=== PATIENT | female | born 1940 | race Caucasian/White ===

== ENCOUNTER 2016-10-25 06:35 | Inpatient (IN) | payer OTHER ==
[2016-10-25 06:40] VITALS: BP 152/64
[2016-10-25 10:40] VITALS: BP 166/54
[2016-10-25 14:25] VITALS: BP 128/61
[2016-10-25 19:00] VITALS: BP 127/61
--- NOTE | 2016-10-25 19:09 | HISTORY AND PHYSICAL ---
ADMITTED: 10/25/2016 CHIEF COMPLAINT: 1. Shortness of breath 2. Productive cough. HISTORY OF PRESENT ILLNESS: This is a 76-year-old female with a history COPD, presenting to the hospital with complaints of shortness of breath and productive cough x1 week. The patient states that approximately a week ago, she started having a productive cough and shortness of breath. She states that she was having intermittent fevers over the last week, which have since improved; however, she has continued to have a productive cough and worsening shortness of breath. She went to her primary care provider 2 days ago and was started on prednisone and Bactrim for COPD exacerbation and possible UTI; however, she took 1 dose of the Bactrim and felt like she was having some worsening shortness of breath and, therefore, stopped taking the antibiotic. She was also having dysuria at that time. MEDICAL/SURGICAL HISTORY: Past medical history: 1. Type 2 diabetes. 2. G4, P4, . 3. Smoker. 4. Peptic ulcer. 5. Sleep disorder. 6. Low back pain. 7. COPD. 8. Cystocele. 9. Hypothyroidism. 10. Constipation. 11. Hiatal hernia. 12. DVT with . Past surgical history: 1. She has had hemorrhoidectomy. 2. Low back and neck surgery. 3. Rib excision. 4. Hysterectomy. 5. Neck excision. 6. Breast mass excision. 7. Appendectomy. 8. Plastic surgery on her face. 9. Colonoscopy in 2016 showed 1 polyp. MEDICATIONS: 1. Advair 500 mcg/50 mcg 1 puff inhaled b.i.d. 2. Albuterol nebulizer 2.5 mg inhaled q.4 hours p.r.n. 3. Atorvastatin 10 mg p.o. daily. 4. Dexilant 30 mg p.o. daily. 5. Diphenhydramine 50 mg p.o. once [address] scans. 6. Flonase 50 mcg 1 spray each nostril b.i.d. 7. Glimepiride 4 mg p.o. daily. 8. DuoNeb inhaled q.i.d. 9. Levemir 20 units subcutaneous daily. 10. Lisinopril 5 mg p.o. daily. 11. Metformin 1000 mg p.o. b.i.d. 12. Montelukast 10 mg p.o. daily. 13. Prednisone unknown dose 14. Albuterol inhaler. 15. Senna 8.6 mg 2 tablets p.o. at bedtime. 16. Bactrim double strength 1 tablet p.o. b.i.d. 17. Synthroid 150 mcg p.o. daily. 18. Tramadol 50 mg p.o. b.i.d. p.r.n. pain. 19. Tums 300 mg p.o. q.2 hours p.r.n. heartburn. ALLERGIES: 1. LATEX. 2. MINOCYCLINE. 3. DOXYCYCLINE. 4. Z-DONTE. 5. CECLOR. 6. NITROFURANTOIN. 7. OXYCODONE. 8. QUININE. 9. THEOPHYLLINE. 10. DYE. 11. PENICILLIN. SOCIAL HISTORY: The patient quit smoking last Thursday after she had cut back over the last year or two. She had been smoking a half a pack a day since the age of 12 or younger. She denies any alcohol or drug use. FAMILY HISTORY: Mother with hypertension and CHF. Sister with diabetes. Brother with COPD. REVIEW OF SYSTEMS: A full 12-point review of systems was done and was negative except as per HPI and the fact that the patient also admits to tarry stools. She also has ongoing constipation, despite her medications for her constipation. PHYSICAL EXAMINATION: VITAL SIGNS: Blood pressure is 152/64, pulse is 89, respiratory rate of 24, O2 saturation 94% on 2 liters, T-max is 36.4 degrees Celsius. GENERAL: This is an elderly female lying in bed in no apparent distress. HEENT: Head is atraumatic, normocephalic. Pupils are equal, round, and reactive to light with accommodation bilaterally. Extraocular muscles are intact bilaterally. Oropharynx is nonerythematous without exudates, but dry. NECK: Trachea is midline. There is no JVD. HEART: S1, S2, regular rate and rhythm. No S3, S4, gallops, or rubs. There is a 2/6 systolic murmur increased at the base. LUNGS: The patient has expiratory wheezing diffusely, but with good air movement. ABDOMEN: Soft, nontender, nondistended without hepatosplenomegaly or masses. Bowel sounds are active. EXTREMITIES: There is trace bilateral lower extremity edema. LAB/IMAGING: Labs: BNP of 20. No other labs are available; however, by report, the patient is positive for influenza. X-rays are unavailable. EKG shows normal sinus rhythm at 89 beats per minute with left atrial enlargement; QTc of 620, which is prolonged; and random flipped T waves. IMPRESSION: This is a 76-year-old female with a history of chronic obstructive pulmonary disease presenting with a chronic obstructive pulmonary disease exacerbation with influenza. PLAN: 1. Fluids, electrolytes, nutrition: The patient will be on a consistent carbohydrate diet. 2. Cardiac: Prolonged QTc. We will evaluate all possible medications that could be contributing to this and hold. Monitor closely. 3. Respiratory: Chronic obstructive pulmonary disease exacerbation. The patient will be continued on prednisone and nebulizer treatments. 4. Endocrine: The patient is a type 2 diabetic. We will restart home insulin at half the home insulin dose and insulin sliding scale. Hypothyroidism: We will add to labs if it has not already been done. 5. Gastrointestinal: The patient states she had a recent peptic ulcer disease and is on Dexilant. Will continue her on pantoprazole while an inpatient. The patient has chronic constipation that is not well controlled. We will add Colace to senna, which she is already currently taking 6. Prophylaxis: The patient will be on sequential compression devices. Given the recent peptic ulcer disease, if she remains stable and is still in the hospital for 24 hours, we will likely change her to chemical deep venous thrombosis prophylaxis. 7. Code status: FULL CODE.
[2016-10-25 23:16] VITALS: BP 122/56
[2016-10-26 02:49] VITALS: BP 115/49
[2016-10-26 06:59] VITALS: BP 108/50
[2016-10-26] MEDS ORDERED: ADVAIR DISKU INH (07:50)
[2016-10-26] MEDS ORDERED: ATORVASTATIN CA10 MG PO (07:51)
[2016-10-26] MEDS ORDERED: ALBUTEROL2.5 MG/3 M IN (07:51)
[2016-10-26] MEDS ORDERED: DEXILANT30 MG PO (07:52)
[2016-10-26] MEDS ORDERED: FLONASE AL50 MCG/ACT (07:53)
[2016-10-26] MEDS ORDERED: AMARYL4 MG PO (07:53)
[2016-10-26] MEDS ORDERED: LEVEMIR FL100 UNIT/M SC (07:54)
[2016-10-26] MEDS ORDERED: METFORMIN HCL500 MG PO (07:55)
[2016-10-26] MEDS ORDERED: PRINIVIL5 MG PO (07:55)
[2016-10-26] MEDS ORDERED: MONTELUKAST SOD10 MG PO (07:56)
[2016-10-26] MEDS ORDERED: PROAIR HFA IN (07:57)
[2016-10-26] MEDS ORDERED: PREDNISONE20 MG PO (07:57)
[2016-10-26] MEDS ORDERED: SENNA-LAX8.6 MG PO (07:58)
[2016-10-26] MEDS ORDERED: SYNTHROID100 MCG PO (07:59)
[2016-10-26] MEDS ORDERED: BACTRIM1 TAB PO (07:59)
[2016-10-26] MEDS ORDERED: ULTRAM EQIVALEN50 MG PO (08:00)
[2016-10-26] MEDS ORDERED: TUMS500 MG PO (08:02)
[2016-10-26 10:30] VITALS: BP 120/50
--- NOTE | 2016-10-26 13:21 | Progress Note ---
Subjective General Patient feels improved today. SOB and cough are improved. No nausea/vomitting/ diarrhea. + constipation. No abd pain. No chest pain. Physical Exam Vital Signs / I&Os Vital Signs Date Time Temp Pulse Resp B/P Pulse O2 O2 Flow FiO2 Ox Delivery Rate 10/26 1143 94 Nasal 1.0 Cannula 10/26 1030 36.6 69 18 120/50 94 Nasal 2.0 Cannula 10/26 0934 2.0 10/26 0800 2.0 10/26 0659 36.4 65 21 108/50 94 Nasal 2.0 Cannula 10/26 0249 36.7 75 24 115/49 95 Nasal 2.0 Cannula 10/26 0235 2.0 10/25 2343 Nasal 2.0 Cannula 10/25 2316 36.7 79 20 122/56 94 Nasal 2.0 Cannula 10/25 1907 2.0 10/25 1900 36.6 72 24 127/61 94 Nasal 2.0 Cannula 10/25 1630 Nasal 2.0 Cannula 10/25 1425 36.4 94 24 128/61 90 Nasal 2.0 Cannula I&O 10/26 0000 10/25 1600 10/25 0800 Intake Total 240 600 Output Total 1200 850 175 Balance -960 -250 -175 General Appearance Alert, Cooperative, No acute distress Lungs Course diffusely with expiratory wheezing. Cardiovascular Regular rate and rhythm, Normal S1 and S2, 2/6 systolic murmur increased at the base. Abdomen Normal bowel sounds, Soft, No tenderness Extremities Trace to 1+ bilateral LE edema. Assessment and Plan Problem List 1. Influenza Plan On tamiflu. 2. COPD (chronic obstructive pulmonary disease) Plan Improving on steroids and nebs. Working on weaning O2. Will consider d/c tomorrow if off O2.
[2016-10-26 14:54] VITALS: BP 127/90
[2016-10-26 18:13] VITALS: BP 144/73
[2016-10-26 22:30] VITALS: BP 95/67
[2016-10-27 02:10] VITALS: BP 145/55
[2016-10-27 06:19] VITALS: BP 113/57
--- NOTE | 2016-10-27 07:35 | Progress Note ---
Medications and Allergies Allergies Coded Allergies: Aspirin (From Percodan) (Severe, DIFFICULTY BREATING 10/25/16) Azithromycin (Severe, 10/25/16) Cefaclor (Severe, HIVES 10/25/16) Iodinated Diagnostic Agents (Severe, IV AND ORAL 10/25/16) Latex (Severe, BLISTERS 10/25/16) Minocycline (From Minocin) (Severe, RASH, FACIAL SWELLING - SKIN CLEANSER 10/25) Morphine (Severe, HIVES 10/25/16) Oxycodone (From Percodan) (Severe, DIFFICULTY BREATING 10/25/16) Penicillins (Severe, RASH 10/25/16) Quinine (Severe, HIVES 10/25/16) Nitrofurantoin (Intermediate, SOB, RASH 10/25/16) Uncoded Allergies: TEREPHTHALATE (Severe, 10/25/16) Physical Exam LAB Results Laboratory Tests 10/27 0500 Chemistry Plasma Sodium (136 - 145 mmol/L) 141 Plasma Potassium (3.5 - 5.1 mmol/L) 3.7 Plasma Chloride (98 - 107 mmol/L) 103 CO2 (Enzymatic) (21 - 32 mmol/L) 28 BUN (7 - 18 mg/dL) 21 Creatinine (0.6 - 1.3 mg/dL) 1.0 Est GFR ( Amer) (mL/min) >60 Est GFR (Non-Af Amer) (mL/min) 57.14 Glucose (70 - 110 mg/dL) 150 Plasma Calcium (8.5 - 10.1 mg/dL) 8.6 Hematology WBC (4.5 - 11.5 K/uL) 9.7 RBC (4.00 - 5.20 M/uL) 4.22 Hgb (12.0 - 16.0 gm/dL) 12.7 Hct (36.0 - 46.0 %) 38.1 MCV (80 - 100 fL) 90 MCH (26 - 34 pg) 30 RDW (11.6 - 14.8 %) 12.7 Neut % (Auto) (50 - 75 %) 62.7 Lymph % (Auto) (25 - 40 %) 29.9 [place] % (Auto) (3 - 14 %) 5.9 Eos % (Auto) (0 - 4 %) 0.5 Baso % (Auto) (0 - 2 %) 1.0 Plt Count, EDTA (150 - 400 K/uL) 236 PUBS MCHC (31 - 37 g/dL) 33 PO 0811 Metformin HCl 1,000 MG BID 10/25 09 AC 10/26 PO 211 Oseltamivir Phosphate 75 MG BID 10/25 09 AC 10/26 PO 10/29 2200 211 Tiotropium [place] See Dose DAILY 10/25 09 AC 10/27 Insts (3) IN 07 Fluticasone/ See Dose RTBID 10/25 08 AC 10/27 Salmeterol Insts (4) IN 732 Acetaminophen/ 1 TAB Q4H PRN 10/25 07 AC 10/27 Hydrocodone Bitart PO 0035 Acetaminophen 650 MG Q6H PRN 10/25 0645 AC PO Albuterol Sulfate 2.5 MG RTQ2H PRN 10/25 0645 AC 10/25 IN 0834 Dose Instructions: (1)Insulin Human Lispro: LOW DOSE: ACCUCHECK AND SLIDING SCALE >>To change sliding scale DISCONTINUE this order and enter a NEW order. Thanks< (2)Calcium Carbonate: 500 - 1000 MG (1 - 2 TABLETS) (3)Tiotropium [place]: 1 CAPSULE VIA HANDIHALER (4)Fluticasone/Salmeterol: 1 CLICK Allergies Coded Allergies: Aspirin (From Percodan) (Severe, DIFFICULTY BREATING 10/25/16) Azithromycin (Severe, 10/25/16) Cefaclor (Severe, HIVES 10/25/16) Iodinated Diagnostic Agents (Severe, IV AND ORAL 10/25/16) Latex (Severe, BLISTERS 10/25/16) Minocycline (From Minocin) (Severe, RASH, FACIAL SWELLING - SKIN CLEANSER 10/25) Morphine (Severe, HIVES 10/25/16) Oxycodone (From Percodan) (Severe, DIFFICULTY BREATING 10/25/16) Penicillins (Severe, RASH 10/25/16) Quinine (Severe, HIVES 10/25/16) Nitrofurantoin (Intermediate, SOB, RASH 10/25/16) Uncoded Allergies: TEREPHTHALATE (Severe, 10/25/16) Physical Exam Vital Signs / I&Os Vital Signs Date Time Temp Pulse Resp B/P Pulse O2 O2 Flow FiO2 Ox Delivery Rate 10/27 0619 98.1 71 18 113/57 93 Nasal 1.0 Cannula 10/27 0210 97.9 79 22 145/55 92 Nasal 1.0 Cannula 10/27 0125 1.0 10/27 0045 Nasal 1.0 Cannula 10/26 2230 98.1 78 18 95/67 94 Nasal 1.0 Cannula 10/26 1925 1.0 10/26 1813 97.9 72 18 144/73 95 Nasal 1.0 Cannula 10/26 1630 Nasal 1.0 Cannula 10/26 1536 1.0 10/26 1454 97.9 66 18 127/90 94 Nasal 1.0 Cannula 10/26 1143 94 Nasal 1.0 Cannula 10/26 1030 97.9 69 18 120/50 94 Nasal 2.0 Cannula 10/26 0934 2.0 10/26 0800 2.0 I&O 10/27 0000 10/26 1600 10/26 0800 Intake Total 940 1660 980 Output Total 675 800 525 Balance 265 860 455 LAB Results Laboratory Tests 10/27 0500 Chemistry Plasma Sodium (136 - 145 mmol/L) 141 Plasma Potassium (3.5 - 5.1 mmol/L) 3.7 Plasma Chloride (98 - 107 mmol/L) 103 CO2 (Enzymatic) (21 - 32 mmol/L) 28 BUN (7 - 18 mg/dL) 21 Creatinine (0.6 - 1.3 mg/dL) 1.0 Est GFR ( Amer) (mL/min) >60 Est GFR (Non-Af Amer) (mL/min) 57.14 Glucose (70 - 110 mg/dL) 150 Plasma Calcium (8.5 - 10.1 mg/dL) 8.6 Hematology WBC (4.5 - 11.5 K/uL) 9.7 RBC (4.00 - 5.20 M/uL) 4.22 Hgb (12.0 - 16.0 gm/dL) 12.7 Hct (36.0 - 46.0 %) 38.1 MCV (80 - 100 fL) 90 MCH (26 - 34 pg) 30 RDW (11.6 - 14.8 %) 12.7 Neut % (Auto) (50 - 75 %) 62.7 Lymph % (Auto) (25 - 40 %) 29.9 [place] % (Auto) (3 - 14 %) 5.9 Eos % (Auto) (0 - 4 %) 0.5 Baso % (Auto) (0 - 2 %) 1.0 Plt Count, EDTA (150 - 400 K/uL) 236 PUBS MCHC (31 - 37 g/dL) 33 Assessment and Plan Problem List 1. COPD (chronic obstructive pulmonary disease) 2. Influenza Plan Current status: [current status] Anticipated discharge date: [discharge date] Anticipated discharge placement: [Home] Patient care time: Time spent in chart review, patient interview, physical exam, CPOE, and care documentation: [ ] minutes Visit to patient today: [ ] Complexity of care: [ ] E&M Codes Rounding: Inpt-Moderate/[id number]
[2016-10-27 10:45] VITALS: BP 117/53
[2016-10-27 14:20] VITALS: BP 130/49
[2016-10-27] MEDS ORDERED: SPIRIVA18 MCG IN (15:25)
--- NOTE | 2016-10-27 15:27 | Provider's Discharge Care Plan ---
Problem, Goal, Plan Problem List 1. COPD (chronic obstructive pulmonary disease) Goals: Improve disease control, Prevent disease progress Instructions: Follow up as directed, Take meds as directed
--- NOTE | 2016-10-27 15:32 | Discharge Summary ---
Discharge Summary Report Admit Date 10/25/16 Discharge Date 10/27/16 Admission Diagnosis 1. Exacerbation of COPD 2. Diabetes Mellitus Discharge Diagnosis 1. Exacerbation of COPD 2. Diabetes Mellitus 3. Nicotine dependence-smoking Brief History The patient is a 76-year-old white female with a significant past medical history of COPD, type 2 diabetes mellitus, peptic ulcer disease, nicotine dependence smoking who presented to [facility] emergency department secondary to complaints of shortness of breath. [facility] ER evaluation was consistent with exacerbation of COPD. Secondary to the above, the patient was admitted by Marilyn Penn M.D. for further evaluation and treatment For other history present illness, past medical history, family history, social history, review of systems, and admission physical examination please see the patient's history and physical examination and ER visit note in the patient's medical record. Hospital Course The following problems and their management were noted during the patient's hospitalization: 1. Exacerbation of COPD The patient presented with history of exacerbation of COPD. He responded well to inhalation bronchodilators and corticosteroids therapy. On the day of discharge patient required no supplemental oxygen. She was up ambulating without problems. She was discharged on combination therapy of Spiriva one inhalation daily, Advair discus 500/50 one inhalation twice a day, albuterol nebs 2.5 mg every 6 hours when necessary shortness of breath, and prednisone 60 mg by mouth daily. She will follow-up with her PCP as previously scheduled. She is encouraged to follow a smoking abstinence program post discharge. No findings of influenza during the patient's hospitalization. Tamiflu none issued on discharge 2. Diabetes Mellitus The patient has a long-standing history of diabetes mellitus. Blood sugar was out of control but elevated on corticosteroids. The patient was discharged on metformin 1000 mg by mouth twice a day and glimepiride 4 mg by mouth daily, and Levemir insulin 20 units subcutaneous twice a day. She'll monitor blood sugars with follow-up with her PCP as scheduled. 3. Nicotine dependence-smoking The patient has a history of nicotine dependence-smoking. Encouraged patient to pursue a smoking absence program post discharge. Recommended NicoDerm patch when necessary as needed. Patient aware of the health risk of ongoing smoking. General Appearance Alert, Oriented X3, Cooperative, No acute distress HEENT Atraumatic, PERRLA, EOMI, Mucous membran moist/pink Lungs Scattered rhonchi, no significant wheezes. Exam much improved. Cardiovascular Regular Rate, Normal S1, Normal S2, No murmurs, Gallops, Rubs Abdomen Normal bowel sounds, Soft, No tenderness Neurological Strength at 5/5 X4 ext, Cranial nerves 3-12 NL Psych/Mental Status Mental status NL, Mood NL Lab/Imaging Laboratory Tests 10/27 0500 Chemistry Plasma Sodium (136 - 145 mmol/L) 141 Plasma Potassium (3.5 - 5.1 mmol/L) 3.7 Plasma Chloride (98 - 107 mmol/L) 103 CO2 (Enzymatic) (21 - 32 mmol/L) 28 BUN (7 - 18 mg/dL) 21 Creatinine (0.6 - 1.3 mg/dL) 1.0 Est GFR ( Amer) (mL/min) >60 Est GFR (Non-Af Amer) (mL/min) 57.14 Glucose (70 - 110 mg/dL) 150 Plasma Calcium (8.5 - 10.1 mg/dL) 8.6 Hematology WBC (4.5 - 11.5 K/uL) 9.7 RBC (4.00 - 5.20 M/uL) 4.22 Hgb (12.0 - 16.0 gm/dL) 12.7 Hct (36.0 - 46.0 %) 38.1 MCV (80 - 100 fL) 90 MCH (26 - 34 pg) 30 RDW (11.6 - 14.8 %) 12.7 Neut % (Auto) (50 - 75 %) 62.7 Lymph % (Auto) (25 - 40 %) 29.9 [place] % (Auto) (3 - 14 %) 5.9 Eos % (Auto) (0 - 4 %) 0.5 Baso % (Auto) (0 - 2 %) 1.0 Plt Count, EDTA (150 - 400 K/uL) 236 PUBS MCHC (31 - 37 g/dL) 33 Discharge Instructions/Meds For other recommendations regarding discharge diet, activity, followup, and discharge medications please see the patient's discharge instructions. Discharge condition: Good, improved Greater than 30 min. was spent in the patient's discharge preparation including discharge interview and physical examination, progress note, discharge instructions, and discharge summary The patient was interviewed and examined on the day of discharge. E&M Codes Discharge: Inpt >30 min spent/[id number]
== END 2016-10-27 16:30 | disposition home or self-care (01) | DRG 192 ==
LOC: ACUTE2 SRH 06:35
PROVIDERS: ADMIT Family Medicine
DX: J44.1 Chronic obstructive pulmonary disease with (acute) exacerbation (principal); E11.65 Type 2 diabetes mellitus with hyperglycemia; T38.0X5A Adverse effect of glucocorticoids and synthetic analogues, initial encounter; Z79.4 Long term (current) use of insulin; F17.210 Nicotine dependence, cigarettes, uncomplicated; E03.9 Hypothyroidism, unspecified
CPT/HCPCS: 90004; 90047; 90074; 90098; 90648; 91023; 91286; 93140; 95059